=== PATIENT | male | born 1955 | race Hispanic/Latino ===

== ENCOUNTER 2017-03-18 06:32 | Day surgery (SDC) | payer OTHER ==
[2017-03-18 07:00] VITALS: BMI 24.4
--- NOTE | 2017-03-18 08:24 | CP.SDSHP ---
Same Day Surgery H & P - History Proposed Procedure: COLONSCOPY Pre-Op Diagnosis: SCREENING - Previous Medical/Surgical History Misc: Other - Allergies Allergies: Allergies No Known Allergies Allergy (Verified 03/18/17 07:00) - Physical Exam General Appearance: N Vital Signs: Vital Signs 03/18/17 03/18/17 07:10 08:18 Temperature 97 F L 97 F L Pulse Rate 65 65 Respiratory 19 19 Rate Blood Pressure 115/82 115/82 O2 Sat by Pulse 98 98 Oximetry Mental Status: Alert & Oriented x3 Neuro: WNL Heart: WNL Lungs: WNL GI: WNL - {Optional Preform as Required} Breast: WNL Abdomen: WNL Rectal: Other Integument: WNL : WNL Ortho: WNL ENT: WNL - Date & Time Time: 08:25 Short Stay Discharge - Short Stay Discharge Admitting Diagnosis/Reason for Visit: SCREENING Disposition: HOME/ ROUTINE
[2017-03-18] MEDS ORDERED: Propofol 10 mg/ml Inj (20 ML) ONE ×2 (08:25→08:26)
[2017-03-18] MEDS ORDERED: Belladonna-Phenobarbital PO STA (08:26)
[2017-03-18 09:16] VITALS: TEMP 97.4
[2017-03-18 11:43] VITALS: BP 135/77; PULSE 59; RESP 20; O2SAT 98
== END 2017-03-18 09:47 | disposition home or self-care (01) ==
LOC: C.ENDO 06:32
PROVIDERS: ATTEND Specialist
DX: Z12.11 Encounter for screening for malignant neoplasm of colon (principal); D12.7 Benign neoplasm of rectosigmoid junction; K52.9 Noninfective gastroenteritis and colitis, unspecified; K64.8 Other hemorrhoids; Z98.890 Other specified postprocedural states; Z79.899 Other long term (current) drug therapy